=== PATIENT | female | born 1975 | race Caucasian/White ===

== ENCOUNTER 2023-07-07 20:49 | Emergency (ER) | payer SELFPAY ==
[~2023-07-07] VITALS: Ht 175.3 cm; Wt 90.7 kg
[~2023-07-07 20:49] MED LIST: ALEVE220 MG PO; DOXYCYCLINE HY100 MG PO; HYDROCODON-ACE1 EAC8 PO; NORCO 5-325 TA1 EACH PO
[2023-07-07] MEDS ORDERED: CLINDAMYCIN HC300 MG PO (21:11)
[2023-07-07 21:25] VITALS: BP 152/89
== END 2023-07-07 21:25 | disposition home or self-care (01) ==
LOC: ED 20:49
DX: K04.7 Periapical abscess without sinus (principal); F17.200 Nicotine dependence, unspecified, uncomplicated; Z88.0 Allergy status to penicillin; Z79.899 Other long term (current) drug therapy
CPT/HCPCS: 99282; A9270